=== PATIENT | female | born 1950 | race Caucasian/White ===

== ENCOUNTER 2024-09-23 17:12 | Emergency (ER) | payer MEDICARE, SELFPAY ==
[2024-09-23 17:12] VITALS: BP 132/75; PULSE 92; RESP 18; TEMP 36.4; O2SAT 98
== END 2024-09-23 21:20 | disposition left against medical advice (07) ==
LOC: ED 21:59
PROVIDERS: PCP Family Medicine
DX: Z53.21 Procedure and treatment not carried out due to patient leaving prior to being seen by health care provider (principal)